=== PATIENT | female | born 1995 | race Hispanic/Latino ===

== ENCOUNTER 2018-08-05 08:35 | Emergency (ER) | payer OTHER, BC ==
[2018-08-05 09:29] LABS: #Eosinphils 0.1 thou/uL (0.0-0.7); #Lymphocytes 1.8 thou/uL (1.20-3.40); #Monocytes 0.5 thou/uL (0.11-0.59); #Neutrophils 3.7 thou/uL (1.40-6.50); %Eosinophils 1.4 % (0.0-10.0); %Lymphocytes 29.6 % (21.0-51.0); %Monocytes 7.6 % (0.0-10.0); %Neutrophils 61.4 % (42.0-75.0); Hemoglobin 10.9 g/dL (12.0-16.0); Mean Corpuscular HGB CONC 33.6 g/dL (32.0-36.0); Mean Corpuscular Hemoglobin 29.2 pg (27.0-31.0); Mean Corpuscular Volume 86.9 fL (78.0-98.0); Mean Platelet Volume 8.5 fL (7.4-10.4); Platelet Count 285 thou/uL (130-400); RBC Distribution Width 13.4 % (11.5-14.5); Red Blood Cell (RBC) Count 3.72 mill/uL (4.20-5.40)
[2018-08-05 09:47] LABS: ALT (SGPT) 8 U/L (8-55); AST (SGOT) 14 U/L (5-34); Albumin 4.4 g/dL (3.5-5.0); Alkaline Phosphatase 58 U/L (40-150); Anion Gap 13 mmol/L (10-20); BUN (Urea Nitrogen) 7 mg/dL (7.0-18.7); Bilirubin, Total 0.9 mg/dL (0.2-1.2); Calc. Creatinine Clearance 0 mL/min (70-130); Calcium 9.4 mg/dL (7.8-10.44); Carbon Dioxide 20 mmol/L (22-29); Chloride 106 mmol/L (98-107); Estimated GFR-MDRD Greater than 90; Globulin 3.5 g/dL (2.4-3.5); Glucose 92 mg/dL (70-105); Potassium 3.7 mmol/L (3.5-5.1); Protein, Total 7.9 g/dL (6.0-8.3); Sodium 135 mmol/L (136-145)
[2018-08-05 11:08] LABS: Bilirubin Negative (Negative); Blood, Urine Negative (Negative); Clarity CLOUDY (Clear); Glucose, Urine (Dipstick) Negative (Negative); Leukocyte Negative (Negative); Nitrite Positive (Negative); Protein, Urine (Dipstick) Negative (Neg-Trace); Specific Gravity, Urine 1.023 (1.002-1.036); pH, Urine 6.5 (5.0-9.0)
[2018-08-05 11:11] LABS: Bacteria/HPF 4+ HPF (None Seen); Hyaline Casts/LPF 4-6 HYALINE CAST LPF (0-3 Hyaline); RBC/HPF 0-3 HPF (0-3)
--- NOTE | 2018-08-05 11:56 | ULT ---
ULTRASOUND PELVIC WITH DOPPLER: Date: 08/05/18 HISTORY: Pain. COMPARISON: None. TECHNIQUE: Real-time Herrera scale with color flow and spectral analysis of the pelvis was performed via transabdom inal approach only. FINDINGS: The uterus measures 10.2 x 5.2 x 5.9 cm. Right ovary measures 2.6 x 2.1 x 2.3 cm. Left ovary measures 1.7 x 1.7 x 1.7 cm. Adequate vascular flow to both ovaries. There is an intrauterine gestational sac containing a pole measuring 0.32 cm. There are h eart tones documented at 108 beats/minute. IMPRESSION: Single, viable intrauterine , with average ultrasound age of 6 weeks and 2 days. Estimated d ate of delivery is 03/29/19. Ovaries are normal. POS: [facility]
== END 2018-08-05 12:27 | disposition home or self-care (01) ==
LOC: ERS 08:35
DX: O20.0 Threatened abortion (principal); O23.41 Unspecified infection of urinary tract in pregnancy, first trimester; Z3A.01 Less than 8 weeks gestation of pregnancy
CPT/HCPCS: 36415; 76856; 80053; 81003; 81015; 84702; 85025; 86900; 86901; 87077; 87086; 87186; 93976

== ENCOUNTER 2019-03-17 19:45 | Inpatient (IN) | payer BC, OTHER ==
[2019-03-17 23:43] VITALS: BMI 22.8
[2019-03-18] MEDS: Lactated Ringer's 1,000 ML IV SCH ×3 (00:09→17:25)
[2019-03-18] MEDS ORDERED: Ibuprofen 800 MG TAB PO PRN (00:21)
[2019-03-18] MEDS ORDERED: Acetaminophen 500 MG TAB PO PRN (00:21)
[2019-03-18] MEDS ORDERED: Promethazine HCl 25 MG/ML VIAL IM PRN ×2 (00:21→14:33)
[2019-03-18] MEDS ORDERED: Lidocaine 1% (PF) 30 ML VIAL SC PRN (00:21)
[2019-03-18] MEDS ORDERED: NS / Oxytocin 40 units/1000ml 1,000 ML IV PRN (00:21)
[2019-03-18] MEDS ORDERED: Butorphanol Tartrate 1 MG/ML VIAL SLOW IVP PRN (00:21)
[2019-03-18] MEDS ORDERED: hydrALAZINE 20 MG/ML VIAL SLOW IVP PRN ×2 (00:21→14:33)
[2019-03-18] MEDS ORDERED: Docusate 100 MG CAP PO PRN (00:21)
[2019-03-18] MEDS ORDERED: Ondansetron PF 4 MG/2 ML Vial IVP PRN ×2 (00:21→14:33)
[2019-03-18] MEDS ORDERED: diphenhydrAMINE 25 MG CAP PO PRN ×2 (00:31→14:33)
[2019-03-18] MEDS: Misoprostol 100 MCG TAB VAG SCH ×3 (00:33→17:25)
[2019-03-18 00:48] LABS: Hemoglobin 9.5 g/dL (12.0-16.0); Mean Corpuscular HGB CONC 35.3 g/dL (32.0-36.0); Mean Corpuscular Hemoglobin 31.9 pg (27.0-31.0); Mean Corpuscular Volume 90.2 fL (78.0-98.0); Mean Platelet Volume 9.6 fL (7.4-10.4); Platelet Count 213 thou/uL (130-400); RBC Distribution Width 13.7 % (11.5-14.5); Red Blood Cell (RBC) Count 2.99 mill/uL (4.20-5.40); White Blood Cell (WBC) Count 7.4 thou/uL (4.8-10.8)
--- NOTE | 2019-03-18 01:19 | PDOC.FPROB ---
FMR OB H&P: HPI - History of Present Illness Chief Complaint: IOL, TIUP, IGR History of Present Illness: Pt is a 24 yo @ 38.4 wks by LMP c/w 6.4 wk sono with history of IUGR, anemia, multiple E. coli UIT (treated with negative UA on 03/09), and BB (03/04 with last dose of Abx on 03/14) who presents for induction of labor due to intrauterine growth restriction. She said she had spotting @ 9 weeks of , and watery discharge 2 weeks ago. Today she presents with no bleeding , loss of fluid, no contractions, and good movement. [facility]: Current - Care : 3 Para: 1 Gestational age: 38.4 wks Due date: 03/27/2019 Dating Criteria: LMP c/w 6.4 wk sono - OB Labs Blood type: A RH: positive Antibody Screen: negative HIV: negative RPR: negative HepBsAg: negative Rubella: immune Urine drug screen: not done Gonorrhea: negative Chlamydia: negative 1 hour gtt: 91 GBS: negative FMR OB H&P: History - Past Medical History PMH: Anemia - OB History OB History: 2015 SAB 2017 - PLASTIC M[employer] History P[employer] History: N/A - Surgical History Sx History: None - Social History Social History: No tobacco, alcohol, or recreational drugs. - Family History Family History: Dad-HTN, Mom-Chol, Maternal Aunt- deaf FMR OB H&P: Medications - Current Home Medications: Medication Instructions Recorded Confirmed Type Ferrous Sulfate 325 mg PO DAILY 07/27/15 03/17/19 History Vitamin 1 tablet PO DAILY 07/27/15 03/17/19 History Allergies/Adverse Reactions: Allergies Allergy/AdvReac Type Severity Reaction Status Date / Time No Known Allergies Allergy Verified 03/17/19 23:27 FMR OB H&P: ROS - Review of Systems General: denies: fever/chills Eyes: denies: vision changes ENT: denies: nasal congestion Cardiovascular: denies: chest pain, edema Respiratory: denies: shortness of breath Gastrointestinal: denies: abdominal pain, cramping, nausea, vomiting, diarrhea Genitourinary (Female): denies: dysuria, polyuria Musculoskeletal: denies: pain Neurologic: denies: weakness Integumentary: denies: itching Endocrine: denies: polyuria Hematologic/Lymphatic: denies: enlarged lymph nodes FMR OB H&P: Vital Signs - Maternal Vital signs: Vital Signs - First Documented Temp Pulse Resp BP Pulse Ox 98.3 F 87 16 115/70 97 03/17/19 23:26 03/17/19 23:26 03/17/19 23:26 03/17/19 23:26 03/17/19 23:26 - Heart Tones Baseline: 150 Variability: moderate Acceleration: present Deceleration: absent Category: category 1 [place] contractions every: None FMR OB H&P: Physical Exam - Physical Exam General: NAD HEENT: normocephalic and atraumatic, PERRLA, oropharynx clear Neck: supple Chest: non-tender to palpation Heart: RRR, normal S1/S2, no murmurs/rubs/gallops, pulses present, no edema General: CTAB Abdomen: soft, gravid Musculoskeletal: pulses present, no misalignment/asymmetry Neurological: sensation to pain,touch and proprioception grossly normal, no focal deficit Skin: no rash Lymphatic: no unusual bruising or bleeding FMR OB H&P: Results - Labs Lab results: Laboratory Results - last 24 hr 03/18/19 00:30 WBC 7.4 RBC 2.99 L Hgb 9.5 L Hct 26.9 L MCV 90.2 MCH 31.9 H MCHC 35.3 RDW 13.7 Plt Count 213 MPV 9.6 FMR OB H&P: A/P - Problem List (1) Term Current Visit: Yes Status: Acute Code(s): Z34.90 - ENCNTR FOR SUPRVSN OF NORMAL , UNSP, UNSP TRIMESTER (2) IUGR (intrauterine growth restriction) Current Visit: Yes Status: Acute (3) Anemia Current Visit: Yes Status: Acute Code(s): D64.9 - ANEMIA, UNSPECIFIED Disposition: Pt is a 24 yo @ 38.4 wks by LMP c/w 6.4 wk sono with history of IUGR, anemia, multiple E. coli UIT (treated with negative UA on 03/09), and BB (03/04 with last dose of Abx on 03/14) who presents for induction of labor due to intrauterine growth restriction. 1. TIUP with IUGR * Pt is 1/Thick/High * Will induce with Cytotec * Continuous monitoring * FHT: baseline 150, moderate variability, accels present, no decels * LR 125 cc/h * Continue PNV * Unsure if she wants epidural currently 2. Anemia * Continue Iron * Hemagram on admission and after delivery * Will monitor Diet: NPO with ice chips Activity: Ad Leanna Dispo: Inpt, LOS > 2D. Discussion: Date/Time: 03/18/19113 This H&P was discussed with [] and [] who agree with the above documentation and plan. Addendum - Attending - Attending Attestation Date/Time: 03/18/19 1850 I personally evaluated the patient and discussed the management with Dr. Barbosa and Ivania. I agree with the History, Examination, Assessment and Plan documented above with any addition or exceptions noted below. , medically indicated induction for FGR 1.8%. Ripening with cytotec.
[2019-03-18 01:30] LABS: HBSAg Index 0.18 S/CO (0-0.99); Hep B Surf Ag Non-Reactive S/CO (NonReactive)
[2019-03-18 05:01] LABS: Syphilis Antibody Nonreactive (Nonreactive); Syphilis Antibody Index 0.06 S/CO (<1.00 Non-Reactive)
--- NOTE | 2019-03-18 06:54 | PDOC.LDPN ---
Labor & Delivery Progress Note - Subjective Subjective: comfortable, no concerns - Objective Vital signs reviewed and normal: yes General: NAD, resting SVE: soft, anterior Dilation: 4 Effacement: 75% Station: -2 FHT: category 1 [place] contractions every: 1-2 min Other exam findings: Membranes intact Resuscitative measures: maternal IV fluids (given prior to check due to a late decels) Plan: continue plan of care -: 24 yo @ 38.4 wga by LMP c/w 6.4 wk sono mIOL for IUGR - Continue plan of care - 4/75/-2, soft anterior - Membranes intact - 1 dose cytotec placed to begin induction, no other induction agents used thus far - Position changes and IV fluids as needed - strip: FHTs 140s, + accels, no decels, Cat. 1 - continue expectant mgmt Krystle Humphries MD PGY1
--- NOTE | 2019-03-18 11:31 | PDOC.LDPN ---
Labor & Delivery Progress Note - Subjective Subjective: comfortable, painful contractions (breathing through) - Objective Vital signs reviewed and normal: yes General: NAD, breathing through contractions - Assessment (1) IUGR (intrauterine growth restriction) Current Visit: Yes Status: Acute (2) Term Code(s): Z34.90 - ENCNTR FOR SUPRVSN OF NORMAL , UNSP, UNSP TRIMESTER Current Visit: Yes Status: Acute -: 24 yo @ 38.5 wga by LMP c/w 6.4 wk sono mIOL for IUGR - Continue plan of care - /-2 @1120 soft anterior - Membranes intact, - s/p 1 cytotec 0400, starting pitocin @ 1120 - 2 late decels, turned to left side and resolved, 500ml IVF - good variability, accels present, currenlty no decels, baseline 150, Cat 1 strip
--- NOTE | 2019-03-18 12:38 | PDOC.LDPN ---
Labor & Delivery Progress Note - Subjective Subjective: comfortable, painful contractions - Objective Vital signs reviewed and normal: yes General: breathing through contractions AROM: clear fluid - Assessment (1) IUGR (intrauterine growth restriction) Current Visit: Yes Status: Acute (2) Term Code(s): Z34.90 - ENCNTR FOR SUPRVSN OF NORMAL , UNSP, UNSP TRIMESTER Current Visit: Yes Status: Acute -: 24 yo @ 38.5 wga by LMP c/w 6.4 wk sono mIOL for IUGR - Continue plan of care - /-2 @1120 soft anterior, AROM clear fluid @1230 - Membranes intact, - s/p 1 cytotec 0400, started pitocin @ 1120 - good variability, accels present, currenlty no decels, baseline 150, Cat 1 strip
--- NOTE | 2019-03-18 13:43 | PDOC.OPDEL ---
OB Operative/Delivery Note Delivery Dr/Surgeon: Jayme Oden Assist: Supervised: Narendra Gonsales; Attending: Dr. Gramajo Pre-Delivery Diagnosis: medically indicated induction (IUGR) Procedure/Post Delivery Dx: spontaneous vaginal delivery Weeks gestation: 38 (38.4) Anesthesia: none - Findings A Sex: female - 1 min: 9 - 5 min: 9 - Additional Findings/Plan Placenta delivered: spontaneous Repaired Obstetrical Laceration: none Estimated blood loss: qBL 53ml Compilations/Other Findings: Delivering Physician: Jayme Oden Attending: [place] Procedure: Spontaneous Vaginal Delivery Anesthesia: QBL: 53 ml Pre-op Diagnosis: 1. Term intrauterine 2. Induction, medically indicated for IUGR 3. IUGR 4. Anemia of 5. Hx of multiple E. coli UTIs, s/p tx and DRAKE negative Post-op Diagnosis: 1. Term intrauterine , delivered 2. Induction, medically indicated for IUGR 3. IUGR 4. Anemia of 5. Hx of E. coli UTI, s/p tx and DRAKE negative Indications: A 24 y/o female @38.4wks presents to L&D for induction due to IUGR. Delivery Note: This is a 24 y/o female now P2012 @38.4wks who delivered a viable F at 1328. Following an uneventful antepartum course, a vigorous female was delivered over an intact perineum in the occipitoanterior position. Anterior Shoulder and then remainder of the body delivered. No nuchal cord. The head was held down and mouth and nares were bulb suctioned. Cord clamped after delayed cord clamping and cut and cord blood collected. Placenta delivered intact (in the Mg presentation) with a 3 vessel cord noted. Fundal massage was performed and the fundus was firm. The cervix and vagina were inspected and found to be free of lacerations. went to nursery in good condition for routine care. Apgars were 9/9 at 1 & 5 minutes, respectively. Patient tolerated delivery well and went to after routine recovery/care. Addendum - Attending - Attending Attestation Date/Time: 03/18/19 0145 I was present for and assisted in the entire uncomplicated performed by Dr Oden. I agree with findings.
[2019-03-18] MEDS ORDERED: Lanolin Ointment 7 GM TUBE TOP PRN (14:33)
[2019-03-18] MEDS ORDERED: Bisacodyl 10 MG SUPP PR PRN (14:33)
[2019-03-18] MEDS ORDERED: Misoprostol 200 MCG TAB VAG PRN (14:33)
[2019-03-18] MEDS ORDERED: NS / Oxytocin 40 units/1000ml 1,000 ML IV SCH (14:33)
[2019-03-18] MEDS ORDERED: Milk Of Magnesia 30 ML UDCUP PO PRN (14:33)
[2019-03-18] MEDS: Ibuprofen 800 MG TAB PO SCH ×2 (17:24→22:12)
[2019-03-18] MEDS: Ferrous Sulfate 325 MG TAB PO SCH (18:15)
[2019-03-18] MEDS: Docusate Calcium (SURFAK) 240 MG CAP PO SCH (22:12)
[2019-03-19 04:47] LABS: #Lymphocytes 1.8 thou/uL (1.20-3.40); #Monocytes 0.7 thou/uL (0.11-0.59); #Neutrophils 7.5 thou/uL (1.40-6.50); %Basophils 0.3 % (0.0-1.0); %Eosinophils 0.4 % (0.0-10.0); %Lymphocytes 17.6 % (21.0-51.0); %Monocytes 7.4 % (0.0-10.0); %Neutrophils 74.4 % (42.0-75.0); Hemoglobin 9.6 g/dL (12.0-16.0); Mean Corpuscular HGB CONC 35.3 g/dL (32.0-36.0); Mean Corpuscular Hemoglobin 32.4 pg (27.0-31.0); Mean Corpuscular Volume 91.8 fL (78.0-98.0); Mean Platelet Volume 9.5 fL (7.4-10.4); Platelet Count 167 thou/uL (130-400); RBC Distribution Width 13.9 % (11.5-14.5); Red Blood Cell (RBC) Count 2.98 mill/uL (4.20-5.40)
[2019-03-19] MEDS: Ibuprofen 800 MG TAB PO SCH ×2 (06:16→14:29)
--- NOTE | 2019-03-19 06:25 | PDOC.PP ---
Post Progress Note Post Day #: 1 Subjective: Pt doing well. Pain controlled. Afebrile. Lochia downtrending. No concerns. Would like to go home today if possible. She is eating and drinking well. Has been walking around without difficulty. Denies chest pain, SOB, leg swelling, abdominal pain. + flatus, no BM. No dysuria. PO intake tolerated: yes Flatus: yes Ambulation: yes Vital Signs (12 hours) Temp Pulse Resp BP Pulse Ox 03/19/19 04:10 98.2 F 88 18 112/69 03/19/19 01:14 98.3 F 92 18 112/62 97 03/18/19 19:10 98.3 F 82 18 104/56 L 97 Weight Weight 64.41 kg - Physical Examination General: NAD Cardiovascular: no m/r/g, RRR Respiratory: clear to auscultation bilaterally, non-labored breathing Abdominal: + bowel sounds, lochia (downtrending), no distention, appropriately TTP Fundus firm & at: 2 cm below umbilicus Deviation from normal: pulse 2+, no edema, no erythema Perineum: no lacerations per delivery report, not inspected today Neurological: no gross focal deficits Psychiatric: A&Ox3, normal affect Result Diagrams: 03/19/19 04:19 Additional Labs: Post Labs Blood Type A POSITIVE 03/18/19 00:30 Hep Bs Antigen Non-Reactive S/CO (NonReactive) 03/18/19 00:30 (1) Term delivered Code(s): O80 - ENCOUNTER FOR FULL-TERM UNCOMPLICATED DELIVERY Status: Acute - Assessment/Plan 24 yo s/p 03/18 @ 1328: - PPD #1, mIOL for IUGR - PP Hgb 9.6, stable - Routine PP cares - Encourage ambulation - Possible d/c today pending TBili Krystle Humphries MD PGY1
[2019-03-19 08:08] VITALS: BP 109/70; TEMP 98.8
[2019-03-19] MEDS: Ferrous Sulfate 325 MG TAB PO SCH (08:55)
[2019-03-19] MEDS: Docusate Calcium (SURFAK) 240 MG CAP PO SCH (08:55)
[2019-03-19] MEDS ORDERED: Adacel (T-DAP) 0.5 ML SYRINGE IM ONE (09:00)
[2019-03-19] MEDS ORDERED: Prenatal Vitamin 1 TAB PO SCH (09:00)
== END 2019-03-19 17:29 | disposition home or self-care (01) | DRG 807 ==
LOC: L&D 23:01 → 3SE 03-18 17:14
PROVIDERS: ADMIT Emergency Medicine; ATTEND Emergency Medicine
PROC: 10E0XZZ Delivery of Products of Conception, External Approach (ICD-10-PCS; principal; 2019-03-18)
PROC: 10907ZC Drainage of Amniotic Fluid, Therapeutic from Products of Conception, Via Natural or Artificial Opening (ICD-10-PCS; 2019-03-18)
PROC: 3E0P7VZ Introduction of Hormone into Female Reproductive, Via Natural or Artificial Opening (ICD-10-PCS; 2019-03-18)
PROC: 3E033VJ Introduction of Other Hormone into Peripheral Vein, Percutaneous Approach (ICD-10-PCS; 2019-03-18)
DX: O36.5930 Maternal care for other known or suspected poor fetal growth, third trimester, not applicable or unspecified (principal); Z37.0 Single live birth; O99.02 Anemia complicating childbirth; D64.9 Anemia, unspecified; Z3A.38 38 weeks gestation of pregnancy
CPT/HCPCS: 36415; 85025; 85027; 86780; 86850; 86900; 86901; 87340; J0595

== ENCOUNTER 2019-05-09 22:20 | Emergency (ER) | payer BC, OTHER ==
--- NOTE | 2019-05-09 22:54 | RAD ---
XR Hand Lt 3 View STANDARD: 05/09/2019 10:28 PM CLINICAL INDICATION: Laceration, injury COMPARISON: None. FINDINGS: No fracture or dislocation identified. Artifact from jewelry obscures the proximal aspect of the four th digit limiting assessment in this regard. Focal density of the distal ulna likely represents a bone island. IMPRESSION: 1. No acute osseous abnormality.
[2019-05-09] MEDS ORDERED: Lidocaine 1% (PF) 30 ML VIAL ONE (23:05)
[2019-05-09] MEDS ORDERED: Adacel (T-DAP) 0.5 ML SYRINGE ONE (23:10)
== END 2019-05-10 00:09 | disposition home or self-care (01) ==
LOC: ERS 22:20
DX: S61.217A Laceration without foreign body of left little finger without damage to nail, initial encounter (principal); S61.215A Laceration without foreign body of left ring finger without damage to nail, initial encounter; W45.8XXA Other foreign body or object entering through skin, initial encounter
CPT/HCPCS: 12002; 90471; 90715; J2001

== ENCOUNTER 2020-06-12 14:58 | Outpatient (CLI) | payer BC ==
--- NOTE | 2020-06-12 15:26 | RAD ---
XR Abdomen 1 View/KUB History: Lost throats with intrauterine device Comparison: None. Findings: Intrauterine device is in an abnormal location on the left pelvis. It is possible that this is perforated through the uterus versus within a markedly leftward rotated endometrium versus accessory uterine horn. Impression: Abnormal location of the intrauterine device. Pelvic ultrasound or CT may be beneficial.
== END 2020-06-12 14:59 | disposition home or self-care (01) ==
LOC: LABBT 14:58
PROVIDERS: ATTEND Obstetrics & Gynecology
DX: T83.32XD Displacement of intrauterine contraceptive device, subsequent encounter (principal)
CPT/HCPCS: 74018

== ENCOUNTER 2023-07-26 13:19 | Emergency (ER) | payer BC ==
[2023-07-26] MEDS ORDERED: Dexamethasone 4 mg/ml Vial ONE (14:23)
== END 2023-07-26 14:25 | disposition home or self-care (01) ==
LOC: ERS 13:19
DX: H66.91 Otitis media, unspecified, right ear (principal); J06.9 Acute upper respiratory infection, unspecified
CPT/HCPCS: 99283; J1100